=== PATIENT | female | born 1975 ===

== ENCOUNTER 2018-02-09 20:25 | Emergency (ER) | payer OTHER ==
[2018-02-09 20:36] VITALS: BP 126/86; PULSE 61; RESP 18; TEMP 98.4; O2SAT 98
[2018-02-09] MEDS ORDERED: Naproxen 550 mg Tab PO STA (20:42)
[2018-02-09] MEDS ORDERED: Naproxen 550 mg Tab PO ONE (20:46)
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
--- NOTE | 2018-02-10 15:17 | RAD ---
Date of service: 02/09/2018 PROCEDURE: Radiographs of the Chest and Right Ribs. HISTORY: pain COMPARISON: None available. TECHNIQUE: Frontal radiograph of the chest and multiple oblique radiographs of the right ribs were obtained. FINDINGS: RIGHT RIBS: No fracture or focal lesion visualized. LUNGS: Clear. PLEURA: No pneumothorax or pleural fluid. CARDIOVASCULAR: Normal sized heart. No pulmonary vascular congestion. OTHER FINDINGS: Metallic clips right upper quadrant of the abdomen consistent prior cholecystectomy IMPRESSION: Unremarkable radiographs of the chest and right ribs. No right rib fracture.
== END 2018-02-09 21:26 | disposition home or self-care (01) ==
LOC: C.ER 20:25
DX: S29.011A Strain of muscle and tendon of front wall of thorax, initial encounter (principal); V89.2XXA Person injured in unspecified motor-vehicle accident, traffic, initial encounter